=== PATIENT | male | born 1985 | race Caucasian/White ===

== ENCOUNTER 2022-01-05 09:52 | Emergency (ER) | payer BC ==
[2022-01-05] MEDS ORDERED: Sodium Chloride 0.9% 10 ML Syringe FLUSH PRN (09:54)
[2022-01-05] MEDS ORDERED: Aspirin 81 MG Tab.Chew PO ONE (09:54)
[2022-01-05] MEDS ORDERED: Nitroglycerin 0.4 MG Tab.SL SL ONE (09:58)
[2022-01-05 10:51] LABS: CORONAVIRUS COVID-19 NAA NEGATIVE (NEGATIVE); RESPIRATORY SYNCYTIAL VIR NAA NEGATIVE (NEGATIVE)
[2022-01-05 11:02] LABS: CHLORIDE,CL 101 mmol/L (98-107); SODIUM,NA 135 mmol/L (136-145)
[2022-01-05 11:05] LABS: ANION GAP 21.2 meq/L (7-15)
[2022-01-05] MEDS ORDERED: Magnesium Sulfate/Water 4 GM in Premix Bag 1 BAG IV ONE (11:18)
[2022-01-05] MEDS ORDERED: Lactated Ringers 1,000 ML IV ONE (11:18)
== END 2022-01-05 13:50 | disposition home or self-care (01) ==
LOC: LL.ED 09:52
DX: R07.89 Other chest pain (principal); M79.10 Myalgia, unspecified site; E83.42 Hypomagnesemia; E66.9 Obesity, unspecified; Z68.31 Body mass index [BMI] 31.0-31.9, adult; Z87.891 Personal history of nicotine dependence; Z88.1 Allergy status to other antibiotic agents; Z20.822 Contact with and (suspected) exposure to COVID-19
CPT/HCPCS: 0241U; 36415; 71045; 80053; 83735; 83880; 84484; 85025; 85379; 85610; 86140; 93005; 96365; 99285-25; A9270-GY; J3475; J7120